=== PATIENT | male | born 1965 | race Caucasian/White ===

== ENCOUNTER 2025-04-15 10:45 | Emergency (ER) | payer MEDICARE, MEDICAID ==
[~2025-04-15] VITALS: Ht 172.7 cm; Wt 103.7 kg
--- NOTE | 2025-04-15 11:41 | ED.PDOC ---
History of Present Illness HPI Comments A 60 YEAR OLD MALE PRESENTS TO THE ED WITH COMPLAINT OF MEDICATION REFILL. PATIENT STATES HE HAS A HISTORY OF SEIZURES AND USUALLY TAKES KEPPRA 500 MG B.I.D. AND TRILEPTAL 300 MG Q.D., BUT RAN OUT OF THIS MEDICATION AND WOULD NOW LIKE A MEDICATION REFILL FOR THESE. PATIENT DENIES SI/HI, FEVER, CHILLS, SHORTN ESS OF BREATH, CHEST PAIN, ABDOMINAL PAIN, NAUSEA, VOMITING, HEADACHE, OR OTHER COMPLAINTS. NO OTHER SYMPTOMS OR MODIFYING FACTORS AT THIS TIME. PATIENT IS ALERT, ORIENTED X 4, AND HAS STEADY GAIT. Chief Complaint: SEIZURE MEDICATION REFILL Time Seen by MD: 10:52 Reviewed Notes: Nurses Notes, Medications, Allergies Allergies: Coded Allergies: NO KNOWN ALLERGIES (Unverified , 04/15/25) Home Meds Active Scripts Oxcarbazepine (Trileptal) 300 Mg Tab, 300 MG PO DAILY, #20 TAB Prov:SHAD JUNE 04/15/25 Levetiracetam (KEPPRA TABLET) 500 Mg Tb, 500 MG PO BID, #40 TAB Prov:SHAD JUNE 04/15/25 Information Source: Patient Mode of Arrival: Ambulatory Severity: None Timing: Days Duration: Since onset, Other Prehospital treatment: None Medication Refill: Ran out of Medication, For: Other (HX OF SEIZURE DISORDER) Past Medical History PAST MEDICAL HISTORY: High Lipids, HTN, Seizures Surgical History: Denies all surgeries Family History Family History: Reviewed,noncontributory to illness Social History Smoker: Non-Smoker Alcohol: Denies ETOH Use Drugs: Denies Drug Use Lives In: Home Constitutional: denies: chills, diaphoresis, fatigue, fever, malaise, sweats, weakness, others EENTM: denies: blurred vision, double vision, ear bleeding, ear discharge, ear drainage, ear pain, ear ringing, eye pain, eye redness, hearing loss, mouth pain, mouth swelling, nasal discharge, nose bleeding, nose congestion, nose pain, photophobia, tearing, throat pain, throat swelling, voice changes, others Respiratory: denies: cough, hemoptysis, orthopnea, SOB at rest, shortness of breath, SOB with excertion, stridor, wheezing, others Cardiovascular: denies: chest pain, dizzy spells, diaphoresis, Dyspnea on exertion, edema, irregular heart beat, left arm pain, lightheadedness, palpitations, PND, syncope, others Gastrointestinal: denies: abdomen distended, abdominal pain, blood streaked bowels, constipated, diarrhea, dysphagia, difficulty swallowing, hematemesis, melena, nausea, poor appetite, poor fluid intake, rectal bleeding, rectal pain, vomiting, others Genitourinary: denies: burning, dysuria, flank pain, frequency, hematuria, incontinence, penile discharge, penile sore, pain, testicle pain, testicle swelling, urgency, others Neurological: denies: dizziness, fainting, headache, left sided numbness, left sided weakness, numbness, paresthesia, pre-existing deficit, right sided numbness, right sided weakness, seizure, speech problems, tingling, tremors, weakness, others Musculoskeletal: denies: back pain, gout, joint pain, joint swelling, muscle pain, muscle stiffness, neck pain, others Integumetry: denies: bruises, change in color, change in hair/nails, dryness, laceration, lesions, lumps, rash, wounds, others Allergic/Immunocompromised: denies: Difficulty Healing, Frequent Infections, Hives, Itching, others Hematologic/Lymphatic: denies: anemia, blood clots, easy bleeding, easy bruising, swollen glands, others Endocrine: denies: excessive hunger, excessive sweating, excessive thirst, excessive urination, flushing, intolerance to cold, intolerance to heat, unexplained weight gain, unexplained weight loss, others Psychiatric: denies: anxiety, bipolar disorder, depression, hopeless, panic disorder, schizophrenia, sleepless, suicidal, others All Other Systems: Reviewed and Negative Physical Exam General Appearance: No Apparent Distress, Obese HEENT: Normal ENT Inspection, PERRL/EOMI, Pharynx Normal, TMs Normal Neck: Full Range of Motion, Non-Tender, Normal, Normal Inspection Respiratory: Chest Non-Tender, Lungs Clear, No Accessory Muscle Use, No Respiratory Distress, Normal Breath Sounds Cardiovascular: No Edema, No JVD, No Murmur, No Gallop, Normal Peripheral Pulses, Regular Rate/Rhythm Breast Exam: Deferred Gastrointestinal: No Organomegaly, Non Tender, No Pulsatile Mass, Normal Bowel Sounds, Soft Genitalia: Deferred Pelvic: Deferred Rectal: Deferred Extremities: No calf tenderness, Normal capillary refill, Normal inspection, Normal range of motion, Non-tender, No pedal edema Musculoskeletal : Apperance: Normal Neurologic: Alert, sys dir II-XII nml as Tested, No Motor Deficits, Normal Affect, Normal Mood, No Sensory Deficits Cerebellar Function: Normal Reflexes: Normal Skin: Dry, Normal Color, Warm Peripheral Pulses: 2+ carotid (R), 2+ carotid (L) Lymphatic: No Adenopathy Was a procedure done? Was a procedure done?: No Differential Dx Considerations may include: MEDICATION REFILL FOR SEIZURE MEDICATION X-Ray, Labs, Meds, VS Vital Signs Date Time Temp Pulse Resp B/P (MAP) Pulse Ox O2 Delivery O2 Flow Rate FiO2 04/15/25 11:52 97.7 63 18 118/70 (86) 97.7 04/15/25 11:24 83 96 Room Air 04/15/25 11:24 97.6 83 17 120/52 (74) 96 97.6 04/15/25 11:10 97.6 83 17 120/52 (74) 96 97.6 X-Ray, Labs, Meds, VS Comment EXTERNAL MEDICAL RECORDS REVIEWED: [NONE] INDEPENDENT HISTORIANS: [NONE] SOCIAL DETERMINANTS OF HEALTH: [NONE] LABS ORDERED: NONE REVIEWED AND INTERPRETED RESULTS: NONE IMAGING ORDERED: NONE PROCEDURES PERFORMED: NONE PATIENT STATED THAT HE HAD NO PLACE TO GO AND IS CURRENTLY HOMELESS AND REQUESTED A FIELD SERVICE COORDINATOR CONSULT. FIELD SERVICE COORDINATOR CONSULT WAS PLACED, PATIENT IS MEDICALLY CLEAR AND IS AWAITING FOOD EXPEDITOR IN THE LOBBY. CRITICAL CARE TIME: NONE I HAVE DISCUSSED THE PATIENT WITH THE ATTENDING PHYSICIAN DR. COOK AND HE AGREES WITH THE PATIENT'S PLAN OF CARE AND DISPOSITION. BASED ON HISTORY OF PRESENT ILLNESS, AND PHYSICAL EXAM, PATIENT WILL BE DISCHARGED HOME. DISCUSSED PLAN FOR DISCHARGE HOME WITH RX [TRILEPTAL 300MG AND KEPPRA 500MG]. MEDICATION WARNINGS GIVEN. SHARED DECISION MAKING: PATIENT INSTRUCTED TO FOLLOW UP WITH PRIMARY CARE PROVIDER IN 1-2 DAYS FOR RE-EVALUATION OF SYMPTOMS. PATIENT VERBALIZES UNDERSTANDING TO RETURN TO ED FOR NEW OR WORSENING SYMPTOMS OR IF FOLLOW UP WITH PCP CANNOT BE OBTAINED. PATIENT FEELS COMFORTABLE GOING HOME AT THIS TIME. ALL QUESTIONS ADDRESSED AT TIME OF DISCHARGE. Time of 1ST Reevaluation: 12:10 Reevaluation 1ST: Improved Patient Education/Counseling: Diagnosis, Treatment Family Education/Counseling: Diagnosis, Treatment Departure 1 Departure Time of Disposition: 12:20 Impression: Primary Impression: Encounter for medication refill Additional Impression: Hx of seizure disorder Disposition: 30 STILL A PATIENT Condition: Stable Additional Instructions: FOLLOW-UP WITH PCP IN 1 TO 2 DAYS. TAKE MEDICATIONS PRESCRIBED. RETURN TO ED FOR ANY NEW OR WORSENING SYMPTOMS. e-Prescriptions Oxcarbazepine (Trileptal) 300 Mg Tab 300 MG PO DAILY, #20 TAB Prov: SHAD JUNE 04/15/25 Levetiracetam (KEPPRA TABLET) 500 Mg Tb 500 MG PO BID, #40 TAB Prov: SHAD JUNE 04/15/25 Discharged With: Self Critical Care Note Critical Care Time?: No Stability Stability form required: No I personally scribed for SHAD JUNE ([email or web address]) on 04/15/25 at 11:41. Electronically submitted by Refugio hCeek ([email or web address]). I personally scribed for SHAD JUEN ([email or web address]) on 04/15/25 at 11:55. Electronically submitted by Refugio Cheek ([email or web address]). SHAD JUNE April 15, 2025 11:41
[2025-04-15] MEDS ORDERED: OXCA300T4 PO (11:43)
[2025-04-15] MEDS ORDERED: KEP500T PO (11:43)
[2025-04-15 14:02] VITALS: BP 133/66; PULSE 62; RESP 19; TEMP 97.5; O2SAT 97
== END 2025-04-15 14:06 | disposition home or self-care (01) ==
LOC: ER 10:45
DX: G40.909 Epilepsy, unspecified, not intractable, without status epilepticus (principal); I10 Essential (primary) hypertension; E78.5 Hyperlipidemia, unspecified; Z76.0 Encounter for issue of repeat prescription; Z79.899 Other long term (current) drug therapy